=== PATIENT | male | born 1965 | race Caucasian/White ===

== ENCOUNTER 2016-08-04 10:19 | Emergency (ER) | payer BC ==
[~2016-08-04] VITALS: Ht 165.1 cm; Wt 75.0 kg
[~2016-08-04 10:19] MED LIST: ADVAIR 100/501 DISK IH; ALBUTEROL SULF8.5 GM IH; ANTIVERT25 MG PO; BENTYL10 MG PO; CIPRO500 MG PO; DAY TIME CO5 MG/5 ML PO; FLEXERIL5 MG PO; FLOMAX0.4 MG PO; FLONASE16 G1 BOTH NARES; HYCODAN SYRUP480 ML PO; LEVAQUIN750 MG PO; LISINOPRIL10 MG PO; METFORMIN HCL500 MG PO; MIRALAX255 GM PO; MOTRIN800 MG PO; MUCUS ER600 MG PO; NAPROSYN500 MG PO; NEXIUM20 MG PO; NO HOME MED; NORCO 5/3251 TABLET PO; PEPCID40 MG PO; PERCOCET 5/31 TABLET PO; PREDNISONE20 MG PO; PREDNISONE50 MG PO; PRILOSEC20 MG PO; PROAIR HFA8.5 GM IH; ULTRAM50 MG PO; VALIUM5 MG PO; ZITHROMAX500 MG PO; ZOFRAN ODT4 MG PO; ZOFRAN4 MG PO
[2016-08-04] MEDS ORDERED: REFRESH PLUS1 EACH BOTH EYES (12:00)
[2016-08-04] MEDS ORDERED: BACITRACIN3.5 GM BOTH EYES (12:01)
[2016-08-04 12:09] LABS: HEMATOCRIT 43.8 % (38.0-50.0); MCH 31.2 PG (29.0-34.0); MCHC 36.3 G/DL (30.0-36.0); MCV 86.1 FL (86-99); MEAN PLAT.VOLUME 9.4 uM^3 (9.0-12.4); PLATELET COUNT 302 K/uL (156-360); RBC DIS.WIDTH-CV 13.2 % (11.8-14.6); RED BLOOD COUNT 5.09 M/uL (4.00-5.50); WHITE BLOOD COUNT 6.3 K/uL (4.1-10.2)
[2016-08-04 12:21] LABS: CHLORIDE 102 mEq/L (99-109); POTASSIUM 4.2 mEq/L (3.7-5.4); SODIUM 138 mEq/L (136-147)
[2016-08-04 12:23] LABS: GLUCOSE 203 mg/dL (70-99)
[2016-08-04 12:24] LABS: ANION GAP 10 MEQ/L (2-14)
[2016-08-04 12:27] LABS: GFR ESTIMATE (CALCULATED) > 59 mL/min/; UREA NITROGEN (BUN) 15 mg/dL (9-23)
[2016-08-04] MEDS ORDERED: FLONASE16 G1 BOTH NARES (13:07)
[2016-08-04] MEDS ORDERED: PATADAY2.5 ML BOTH EYES (13:07)
[2016-08-04] MEDS ORDERED: NAPHCON-A EYE D15 ML BOTH EYES (13:23)
[2016-08-04 13:34] VITALS: BP 133/69
== END 2016-08-04 13:36 | disposition home or self-care (01) ==
LOC: EME 10:19
PROVIDERS: Nurse Practitioner Family
DX: H10.13 Acute atopic conjunctivitis, bilateral (principal); J31.0 Chronic rhinitis; J32.9 Chronic sinusitis, unspecified; E11.9 Type 2 diabetes mellitus without complications; Z79.84 Long term (current) use of oral hypoglycemic drugs; J44.9 Chronic obstructive pulmonary disease, unspecified; K21.9 Gastro-esophageal reflux disease without esophagitis; Z87.891 Personal history of nicotine dependence
CPT/HCPCS: 70480; 80048; 85027; 93005; 99281; 99284

== ENCOUNTER 2016-09-06 13:28 | Emergency (ER) | payer BC ==
[~2016-09-06] VITALS: Ht 165.1 cm; Wt 76.9 kg
[~2016-09-06 13:28] MED LIST changes: +BACITRACIN3.5 GM BOTH EYES; +NAPHCON-A EYE D15 ML BOTH EYES; +PATADAY2.5 ML BOTH EYES; +REFRESH PLUS1 EACH BOTH EYES
[2016-09-06] MEDS ORDERED: PATADAY2.5 ML BOTH EYES (14:03)
[2016-09-06] MEDS ORDERED: MUCUS ER600 MG PO (14:55)
[2016-09-06] MEDS ORDERED: NAPROSYN500 MG PO (14:55)
[2016-09-06] MEDS ORDERED: FLONASE16 G1 BOTH NARES (14:55)
[2016-09-06 15:22] VITALS: BP 132/100
== END 2016-09-06 15:23 | disposition home or self-care (01) ==
LOC: EME 13:28
DX: J02.0 Streptococcal pharyngitis (principal); R50.9 Fever, unspecified; R51 Headache; Z87.891 Personal history of nicotine dependence
CPT/HCPCS: 87651 90; 99281; 99284; J0561

== ENCOUNTER 2016-09-12 09:55 | Emergency (ER) | payer BC ==
[~2016-09-12] VITALS: Ht 165.1 cm; Wt 77.6 kg
[2016-09-12 10:11] LABS: POINT-OF-CARE METER ID UU13113778
[2016-09-12] MEDS ORDERED: ERYTHROMYCIN O3.5 GM BOTH EYES (11:33)
[2016-09-12 11:56] VITALS: BP 136/82
== END 2016-09-12 11:56 | disposition home or self-care (01) ==
LOC: EME 09:55
DX: H04.129 Dry eye syndrome of unspecified lacrimal gland (principal); E11.65 Type 2 diabetes mellitus with hyperglycemia; H10.45 Other chronic allergic conjunctivitis; K21.9 Gastro-esophageal reflux disease without esophagitis; Z79.84 Long term (current) use of oral hypoglycemic drugs; Z87.891 Personal history of nicotine dependence
CPT/HCPCS: 82948; 99281; 99283

== ENCOUNTER 2016-09-18 10:12 | Emergency (ER) | payer BC ==
[~2016-09-18] VITALS: Ht 165.1 cm; Wt 77.0 kg
[~2016-09-18 10:12] MED LIST changes: +ERYTHROMYCIN O3.5 GM BOTH EYES
[2016-09-18 12:12] VITALS: BP 146/92
== END 2016-09-18 12:12 | disposition home or self-care (01) ==
LOC: EME 10:12
DX: H04.123 Dry eye syndrome of bilateral lacrimal glands (principal); E11.9 Type 2 diabetes mellitus without complications
CPT/HCPCS: 99281; 99283

== ENCOUNTER 2016-09-21 08:55 | Emergency (ER) | payer BC ==
[~2016-09-21] VITALS: Ht 165.1 cm; Wt 76.7 kg
[2016-09-21 10:06] LABS: EOSINOPHIL (%) 1.1 % (0-5); EOSINOPHIL COUNT 0.1 K/uL (0-0.3); HEMATOCRIT 45.5 % (38.0-50.0); IMMATURE GRANULOCYTE (%) 0.3 % (0.0-0.7); INSTRUMENT ABS NEUTROPHIL CT 4.1 K/uL; LYMPHOCYTE COUNT 1.7 K/uL (1.0-2.8); MCH 30.5 PG (29.0-34.0); MCHC 34.5 G/DL (30.0-36.0); MCV 88.3 FL (86-99); MEAN PLAT.VOLUME 9.4 uM^3 (9.0-12.4); MONOCYTE (%) 4.8 % (3-12); MONOCYTE COUNT 0.3 K/uL (0-0.8); NEUTROPHIL (%) 66.1 % (45-76); NEUTROPHIL COUNT 4.1 K/uL (1.8-6.4); PLATELET COUNT 299 K/uL (156-360); RBC DIS.WIDTH-CV 12.1 % (11.8-14.6); RBC DIS.WIDTH-SD 39.5 % (39-53); RED BLOOD COUNT 5.15 M/uL (4.00-5.50); WHITE BLOOD COUNT 6.2 K/uL (4.1-10.2)
[2016-09-21 10:12] LABS: CHLORIDE 104 mEq/L (99-109); POTASSIUM 3.9 mEq/L (3.7-5.4); SODIUM 140 mEq/L (136-147)
[2016-09-21 10:14] LABS: GLUCOSE 153 mg/dL (70-99)
[2016-09-21 10:15] LABS: ANION GAP 9 MEQ/L (2-14)
[2016-09-21 10:18] LABS: GFR ESTIMATE (CALCULATED) > 59 mL/min/
[2016-09-21 10:19] LABS: UREA NITROGEN (BUN) 12 mg/dL (9-23)
[2016-09-21] MEDS ORDERED: ANTIVERT25 MG PO (10:33)
[2016-09-21 10:58] VITALS: BP 162/91
== END 2016-09-21 11:00 | disposition home or self-care (01) ==
LOC: EME 08:55
PROVIDERS: Emergency Medicine
DX: H10.13 Acute atopic conjunctivitis, bilateral (principal); R42 Dizziness and giddiness; I10 Essential (primary) hypertension; E11.9 Type 2 diabetes mellitus without complications; Z87.891 Personal history of nicotine dependence
CPT/HCPCS: 80048; 85025; 93005; 99281; 99283

== ENCOUNTER 2017-01-07 15:33 | Emergency (ER) | payer OTHER ==
[~2017-01-07] VITALS: Ht 165.1 cm; Wt 80.5 kg
[2017-01-07 16:38] LABS: HEMATOCRIT 47.2 % (38.0-50.0); MCH 31.6 PG (29.0-34.0); MCHC 35.8 G/DL (30.0-36.0); MCV 88.2 FL (86-99); MEAN PLAT.VOLUME 9.6 uM^3 (9.0-12.4); PLATELET COUNT 302 K/uL (156-360); RBC DIS.WIDTH-SD 41.8 % (39-53); RED BLOOD COUNT 5.35 M/uL (4.00-5.50); WHITE BLOOD COUNT 8.1 K/uL (4.1-10.2)
[2017-01-07 16:49] LABS: CHLORIDE 103 mEq/L (99-109); SODIUM 139 mEq/L (136-147)
[2017-01-07 16:50] LABS: GLUCOSE 199 mg/dL (70-99)
[2017-01-07 16:52] LABS: ANION GAP 10 MEQ/L (2-14)
[2017-01-07 16:54] LABS: GFR ESTIMATE (CALCULATED) > 59 mL/min/
[2017-01-07 16:55] LABS: UREA NITROGEN (BUN) 19 mg/dL (9-23)
[2017-01-07 17:00] LABS: TROP-I INTERPRETATION NEGATIVE; TROPONIN-I < 0.01 ng/mL (0.0-0.30)
[2017-01-07 17:06] LABS: D-DIMER ELISA 0.19 mg/L FEU (< 0.57)
[2017-01-07 18:41] LABS: TROP-I INTERPRETATION NEGATIVE; TROPONIN-I < 0.01 ng/mL (0.0-0.30)
[2017-01-07] MEDS ORDERED: PREDNISONE20 MG PO (18:46)
[2017-01-07] MEDS ORDERED: PROVENTIL HFA6.7 GM IH (18:46)
[2017-01-07] MEDS ORDERED: PROVENTIL,2.5 MG/3 M IH (18:59)
[2017-01-07 19:14] VITALS: BP 143/99
== END 2017-01-07 19:15 | disposition home or self-care (01) ==
LOC: EME 15:33
PROVIDERS: Emergency Medicine
DX: J45.901 Unspecified asthma with (acute) exacerbation (principal); Z87.891 Personal history of nicotine dependence; I10 Essential (primary) hypertension; K21.9 Gastro-esophageal reflux disease without esophagitis; E11.9 Type 2 diabetes mellitus without complications; J44.9 Chronic obstructive pulmonary disease, unspecified; Z87.442 Personal history of urinary calculi; Z79.84 Long term (current) use of oral hypoglycemic drugs
CPT/HCPCS: 71020; 80048; 84484; 85027; 85379; 93005; 94640; 99281; 99284; J7512

== ENCOUNTER 2017-01-10 16:11 | Emergency (ER) | payer OTHER ==
[~2017-01-10] VITALS: Ht 165.1 cm; Wt 80.0 kg
[~2017-01-10 16:11] MED LIST changes: +PROVENTIL HFA6.7 GM IH; +PROVENTIL,2.5 MG/3 M IH
[2017-01-10 17:14] LABS: HEMATOCRIT 44.7 % (38.0-50.0); MCH 31.9 PG (29.0-34.0); MCV 88.7 FL (86-99); MEAN PLAT.VOLUME 9.8 uM^3 (9.0-12.4); PLATELET COUNT 342 K/uL (156-360); RBC DIS.WIDTH-SD 41.7 % (39-53); RED BLOOD COUNT 5.04 M/uL (4.00-5.50); WHITE BLOOD COUNT 11.4 K/uL (4.1-10.2)
[2017-01-10 17:21] LABS: CHLORIDE 99 mEq/L (99-109); POTASSIUM 4.2 mEq/L (3.7-5.4); SODIUM 136 mEq/L (136-147)
[2017-01-10 17:24] LABS: ANION GAP 13 MEQ/L (2-14)
[2017-01-10 17:26] LABS: GFR ESTIMATE (CALCULATED) > 59 mL/min/; GLUCOSE 408 mg/dL (70-99)
[2017-01-10 17:27] LABS: UREA NITROGEN (BUN) 24 mg/dL (9-23)
[2017-01-10 19:18] LABS: TROP-I INTERPRETATION NEGATIVE; TROPONIN-I < 0.01 ng/mL (0.0-0.30)
[2017-01-10] MEDS ORDERED: PHENERGAN-CODE120 ML PO (21:36)
[2017-01-10] MEDS ORDERED: LEVAQUIN750 MG PO (21:36)
[2017-01-10 21:57] VITALS: BP 145/79
== END 2017-01-10 21:58 | disposition home or self-care (01) ==
LOC: EME 16:11
DX: J44.1 Chronic obstructive pulmonary disease with (acute) exacerbation (principal); I10 Essential (primary) hypertension; Z87.891 Personal history of nicotine dependence
CPT/HCPCS: 71020; 71275; 80048; 83880; 84484; 85027; 93005; 94640; 99281; 99284

== ENCOUNTER 2017-03-09 08:09 | Emergency (ER) | payer OTHER ==
[~2017-03-09] VITALS: Ht 167.6 cm; Wt 78.1 kg
[~2017-03-09 08:09] MED LIST changes: +PHENERGAN-CODE120 ML PO
[2017-03-09 09:02] LABS: HEMATOCRIT 43.1 % (38.0-50.0); MCH 31.8 PG (29.0-34.0); MCHC 36.4 G/DL (30.0-36.0); MCV 87.2 FL (86-99); PLATELET COUNT 234 K/uL (156-360); RBC DIS.WIDTH-CV 12.1 % (11.8-14.6); RBC DIS.WIDTH-SD 38.5 % (39-53); RED BLOOD COUNT 4.94 M/uL (4.00-5.50); WHITE BLOOD COUNT 4.3 K/uL (4.1-10.2)
[2017-03-09 09:10] LABS: CHLORIDE 100 mEq/L (99-109); POTASSIUM 3.8 mEq/L (3.7-5.4); SODIUM 135 mEq/L (136-147)
[2017-03-09 09:13] LABS: ANION GAP 11 MEQ/L (2-14); GLUCOSE 487 mg/dL (70-99)
[2017-03-09 09:16] LABS: UREA NITROGEN (BUN) 9 mg/dL (9-23)
[2017-03-09 09:29] LABS: GFR ESTIMATE (CALCULATED) > 59 mL/min/
[2017-03-09 11:33] LABS: POINT-OF-CARE METER ID UU13113747
[2017-03-09 12:52] VITALS: BP 139/88
== END 2017-03-09 12:54 | disposition home or self-care (01) ==
LOC: EME 08:09
PROVIDERS: Emergency Medicine
DX: J30.2 Other seasonal allergic rhinitis (principal); R05 Cough; E11.65 Type 2 diabetes mellitus with hyperglycemia; Z79.84 Long term (current) use of oral hypoglycemic drugs; J44.9 Chronic obstructive pulmonary disease, unspecified; I10 Essential (primary) hypertension; Z87.891 Personal history of nicotine dependence
CPT/HCPCS: 71020; 80048; 82948; 85027; 99281; 99284; J7030

== ENCOUNTER 2017-07-19 09:41 | Emergency (ER) | payer OTHER ==
[~2017-07-19] VITALS: Ht 165.1 cm; Wt 81.3 kg
[2017-07-19] MEDS ORDERED: VENTOLIN HFA18 GM IH (12:37)
[2017-07-19] MEDS ORDERED: ZITHROMAX Z-PA250 MG PO (12:37)
[2017-07-19] MEDS ORDERED: PREDNISONE20 MG PO (12:37)
[2017-07-19 13:06] VITALS: BP 145/87
== END 2017-07-19 13:14 | disposition home or self-care (01) ==
LOC: EME 09:41
DX: J20.9 Acute bronchitis, unspecified (principal); J45.909 Unspecified asthma, uncomplicated; E11.9 Type 2 diabetes mellitus without complications; K21.9 Gastro-esophageal reflux disease without esophagitis; I10 Essential (primary) hypertension; Z87.891 Personal history of nicotine dependence; Z79.84 Long term (current) use of oral hypoglycemic drugs
CPT/HCPCS: 71046; 99281; 99284

== ENCOUNTER 2017-08-15 10:05 | Emergency (ER) | payer OTHER ==
[~2017-08-15] VITALS: Ht 165.1 cm; Wt 80.6 kg
[~2017-08-15 10:05] MED LIST changes: +VENTOLIN HFA18 GM IH; +ZITHROMAX Z-PA250 MG PO
[2017-08-15 12:07] LABS: HEMATOCRIT 43.9 % (38.0-50.0); HEMOGLOBIN 16.3 G/DL (12.5-16.6); MCH 32.6 PG (29.0-34.0); MCHC 37.1 G/DL (30.0-36.0); MCV 87.8 FL (86-99); PLATELET COUNT 237 K/uL (156-360); RBC DIS.WIDTH-CV 12.3 % (11.8-14.6); RBC DIS.WIDTH-SD 39.2 % (39-53); WHITE BLOOD COUNT 5.3 K/uL (4.1-10.2)
[2017-08-15 12:08] LABS: APPEARANCE CLEAR ((CLEAR)); BILIRUBIN NEGATIVE; BLOOD NEGATIVE; COLOR YELLOW ((YELLOW)); GLUCOSE (STRIP) >=500; KETONES 5; LEUKOCYTES NEGATIVE; NITRITE NEGATIVE; PROTEIN (STRIP) 30; SPECIFIC GRAVITY 1.027 (1.000-1.030); UROBILINOGEN 0.2 MG/DL (0.2-1.0)
[2017-08-15 12:16] LABS: CHLORIDE 102 mEq/L (99-109); POTASSIUM 3.8 mEq/L (3.7-5.4); SODIUM 137 mEq/L (136-147)
[2017-08-15 12:18] LABS: GLUCOSE 202 mg/dL (70-99)
[2017-08-15 12:22] LABS: CREATININE 0.8 mg/dL (0.6-1.3); GFR ESTIMATE (CALCULATED) > 59 mL/min/ (58.99-99999)
[2017-08-15 12:23] LABS: UREA NITROGEN (BUN) 16 mg/dL (9-23)
[2017-08-15 13:16] VITALS: BP 142/88
== END 2017-08-15 13:17 | disposition home or self-care (01) ==
LOC: EME 10:05
PROVIDERS: Nurse Practitioner Family
DX: S39.011A Strain of muscle, fascia and tendon of abdomen, initial encounter (principal); X58.XXXA Exposure to other specified factors, initial encounter; M79.604 Pain in right leg; I10 Essential (primary) hypertension; E11.9 Type 2 diabetes mellitus without complications; Z79.84 Long term (current) use of oral hypoglycemic drugs; Z87.442 Personal history of urinary calculi; Z87.891 Personal history of nicotine dependence
CPT/HCPCS: 80048; 81003; 85027; 93971; 99281; 99284